=== PATIENT | female | born 1990 | race Caucasian/White ===

== ENCOUNTER 2017-08-07 08:04 | Emergency (ER) | payer BC ==
[~2017-08-07] VITALS: Ht 157.5 cm; Wt 55.0 kg
[~2017-08-07 08:04] MED LIST: CYCL-1 PO; DOCU-28 PO; ETHI1TAB18 PO; HYDR-3965 PO
[2017-08-07] MEDS ORDERED: LORazepam 2 mg/ml vial IV ONE (08:50)
[2017-08-07] MEDS ORDERED: ondansetron/PF 4mg/2ml inj IV ONE (08:50)
[2017-08-07] MEDS ORDERED: meclizine 12.5mg tablet PO ONE (08:50)
[2017-08-07] MEDS ORDERED: normal saline 1000ML IV soln IVB ONE (09:40)
[2017-08-07] MEDS ORDERED: ONDA4TAB12 PO (09:42)
[2017-08-07] MEDS ORDERED: MECL-111 PO (09:42)
[2017-08-07] MEDS ORDERED: LORA0.5T PO (09:42)
[2017-08-07 10:29] VITALS: BP 119/62
== END 2017-08-07 10:30 | disposition home or self-care (01) ==
LOC: ER 08:04
DX: R42 Dizziness and giddiness (principal); F12.90 Cannabis use, unspecified, uncomplicated; Z88.5 Allergy status to narcotic agent; Z79.899 Other long term (current) drug therapy
CPT/HCPCS: 96361; 96374; 96375; 99284; J2060; J2405; J7030; J8597